=== PATIENT | male | born 1960 | race African-American/Black ===

== ENCOUNTER 2023-02-27 08:55 | Inpatient (IN) | payer SELFPAY ==
[~2023-02-27] VITALS: Ht 190.5 cm; Wt 80.7 kg
[2023-02-27 09:36] LABS: BASOPHILS % 0.8 % (0.0-2.0); HEMATOCRIT. 34.7 % (42.0-52.0); HEMOGLOBIN. 11.7 g/dL (14.0-18.0); LYMPHOCYTES % 21.9 % (20.0-50.0); MEAN CORPUSCULAR HEMOGLOBIN 28.4 pg (28.0-32.0); MEAN CORPUSCULAR HGB CONC 33.6 g/dL (31.0-37.0); MEAN CORPUSCULAR VOLUME 84.6 fL (80.0-94.0); MEAN PLATELET VOLUME 10.4 fl (7.4-10.4); NEUTROPHILS % 67.3 % (40.0-76.0); PLATELET 176 x1000/uL (130-400); RED CELL DISTRIBUTION WIDTH 13.1 % (11.6-14.6); WHITE BLOOD COUNT 4.8 x1000/uL (4.5-11.0)
[2023-02-27 09:44] LABS: CHLORIDE 97 mEq/L (98-107); INDEX HEMOLYSI 1 (1-3); INDEX ICTERIC 1 (1-4); INDEX LIPEMIC 1 (1-3); POTASSIUM 4.7 mEq/L (3.5-5.1); SODIUM 130 mEq/L (136-145)
[2023-02-27 09:53] LABS: ALANINE AMINOTRANSFERASE 18 IU/L (13-61); ALBUMIN 3.9 g/dL (3.4-5.0); ASPARTATE AMINOTRANSFERASE 9 IU/L (15-37); BILIRUBIN TOTAL 0.8 mg/dL (0.1-1.0); CALCIUM 9.1 mg/dL (8.5-10.1); CARBON DIOXIDE 29 mEq/L (21-32); CREATININE 1.6 mg/dL (0.6-1.3); GLUCOSE 370 mg/dL (70-105); PROTEIN TOTAL 8.1 g/dL (6.0-8.3); TROPONIN I HIGH SENSITIVITY 4 ng/L (<78); UREA NITROGEN BLOOD 30 mg/dL (7-21)
[2023-02-27] MEDS ORDERED: ASPIRIN 81MG TABLET PO ONE (10:00)
[2023-02-27] MEDS: NITROGLYCERIN 0.4MG TABLET SL SL PRN ×5 (10:20→10:57)
[2023-02-27] MEDS ORDERED: NITROGLYCERIN 0.4MG TABLET SL SL PRN (13:45)
[2023-02-27] MEDS ORDERED: CLONIDINE 0.1MG TABLET PO PRN (13:45)
[2023-02-27] MEDS ORDERED: ACETAMINOPHEN 325MG TABLET PO PRN ×2 (13:45)
[2023-02-27] MEDS ORDERED: MAGNESIUM/ALUMINUM HYDROXIDE/SIMETHICONE 30ML UDC PO PRN (13:45)
[2023-02-27] MEDS ORDERED: NA PHOS,M-B/NA PHOS,DI-BA ENEMA 118ML PR PRN (13:45)
[2023-02-27] MEDS ORDERED: ONDANSETRON HCL 4MG/2ML INJ IV PRN (13:45)
[2023-02-27] MEDS ORDERED: DOCUSATE SODIUM 100MG CAPSULE PO PRN (13:45)
[2023-02-27] MEDS ORDERED: IPRATROPIUM/ALBUTEROL 0.5-3(2.5)MG/3ML NEB HHN PRN (13:45)
[2023-02-27] MEDS ORDERED: DEXTROSE 50% WATER 50ML SYRINGE IV PRN (14:15)
[2023-02-27] MEDS: SODIUM CHLORIDE 0.9% 1,000 ML IV SCH (14:48)
[2023-02-27 14:52] LABS: CLARITY URINE CLEAR (CLEAR); COLOR URINE YELLOW (YELLOW); GLUCOSE URINE 3+ (NEGATIVE); KETONES URINE TRACE (NEGATIVE); LEUKOCYTE ESTERASE URINE NEGATIVE (NEGATIVE); NITRITE URINE NEGATIVE (NEGATIVE); OCCULT BLOOD URINE NEGATIVE (NEGATIVE); PH URINE 5.5 (4.5-8.0); PROTEIN URINE 1+ (NEGATIVE); SPECIFIC GRAVITY URINE 1.029 (1.005-1.030); UROBILINOGEN URINE 0.2 E.U./dL (0.2-1.0)
[2023-02-27 15:30] LABS: BACTERIA URINE FEW; RBC URINE 0-2 /hpf (0-2); SQUAMOUS EPITHELIAL CELL URINE NONE SEEN /lpf (RARE/1+); WBC URINE 0-2 /hpf (0-2); YEAST URINE NONE SEEN
[2023-02-27 15:50] LABS: *AMPHETAMINES SCREEN URINE NEGATIVE (NEGATIVE); *BARBITURATES SCREEN URINE NEGATIVE (NEGATIVE); *BENZODIAZEPINES SCREEN URINE NEGATIVE (NEGATIVE); *COCAINE SCREEN URINE NEGATIVE (NEGATIVE); CANNABINOID URINE SCREEN NEGATIVE (NEGATIVE); ECSTASY MDMA SCREEN URINE NEGATIVE (NEGATIVE); METHADONE URINE SCREEN NEGATIVE (NEGATIVE); OPIATES URINE SCREEN NEGATIVE (NEGATIVE); PHENCYCLIDINE URINE SCREEN NEGATIVE (NEGATIVE)
[2023-02-27] MEDS: ENOXAPARIN 40MG/0.4ML SYR SUBCUT SCH (16:08)
[2023-02-27] MEDS: METOPROLOL TARTRATE 25MG TABLET PO SCH (16:33)
[2023-02-27] MEDS: INSULIN LISPRO 100 UNITS/ML SUBCUT SCH ×2 (17:55→22:13)
[2023-02-27] MEDS: BLOOD SUGAR DIAGNOSTIC STRIP TEST SCH ×2 (17:59→21:00)
[2023-02-27 18:22] LABS: TROPONIN I HIGH SENSITIVITY 4 ng/L (<78)
[2023-02-27 20:00] VITALS: BP 134/78; PULSE 74; RESP 16; TEMP 96.9
[2023-02-27 20:05] VITALS: BP 134/78; PULSE 72; PULSE 74; RESP 16; RESP 17; TEMP 96.9
[2023-02-27] MEDS ORDERED: INSULIN GLARGINE 100 UNITS/ML SUBCUT SCH (21:00)
[2023-02-27] MEDS: ATORVASTATIN CALCIUM 40MG TABLET PO SCH (21:52)
[2023-02-28] VITALS: BP 111/54; PULSE 73; RESP 18; TEMP 96.9
[2023-02-28] MEDS ORDERED: INSU100I22 SQ (01:04)
[2023-02-28] MEDS ORDERED: ATOR-2 PO (01:04)
[2023-02-28] MEDS ORDERED: METF-416 PO (01:04)
[2023-02-28] MEDS ORDERED: RAMI5CAP65 PO (01:04)
[2023-02-28] MEDS: SODIUM CHLORIDE 0.9% 1,000 ML IV SCH ×3 (02:43→22:43)
[2023-02-28 02:49] LABS: TROPONIN I HIGH SENSITIVITY 6 ng/L (<78)
[2023-02-28 03:09] LABS: HEPATITIS B SURFACE ANTIGEN NEGATIVE
[2023-02-28 04:00] VITALS: BP 137/71; PULSE 67; RESP 20; TEMP 96.9
[2023-02-28 05:22] LABS: HEPATITIS C VIR.AB 0.13 INDEXVAL (0.00-0.80)
[2023-02-28] MEDS: INSULIN LISPRO 100 UNITS/ML SUBCUT SCH ×4 (06:00→21:34)
[2023-02-28] MEDS: BLOOD SUGAR DIAGNOSTIC STRIP TEST SCH ×4 (06:01→21:00)
[2023-02-28 07:16] LABS: BASOPHILS % 0.2 % (0.0-2.0); HEMATOCRIT. 34.3 % (42.0-52.0); HEMOGLOBIN. 11.8 g/dL (14.0-18.0); LYMPHOCYTES % 31.2 % (20.0-50.0); MEAN CORPUSCULAR HEMOGLOBIN 29.2 pg (28.0-32.0); MEAN CORPUSCULAR HGB CONC 34.5 g/dL (31.0-37.0); MEAN CORPUSCULAR VOLUME 84.6 fL (80.0-94.0); MEAN PLATELET VOLUME 11.2 fl (7.4-10.4); NEUTROPHILS % 55.6 % (40.0-76.0); PLATELET 169 x1000/uL (130-400); RED BLOOD CELL COUNT 4.05 mill/uL (4.7-6.1); RED CELL DISTRIBUTION WIDTH 13.4 % (11.6-14.6); WHITE BLOOD COUNT 4.3 x1000/uL (4.5-11.0)
[2023-02-28 07:39] LABS: CHLORIDE 102 mEq/L (98-107); INDEX HEMOLYSI 1 (1-3); INDEX ICTERIC 1 (1-4); INDEX LIPEMIC 1 (1-3); POTASSIUM 4.6 mEq/L (3.5-5.1); SODIUM 136 mEq/L (136-145)
[2023-02-28 07:44] LABS: TROPONIN I HIGH SENSITIVITY 6 ng/L (<78)
[2023-02-28 07:55] LABS: ALANINE AMINOTRANSFERASE 18 IU/L (13-61); ALBUMIN 3.5 g/dL (3.4-5.0); ASPARTATE AMINOTRANSFERASE 11 IU/L (15-37); BILIRUBIN TOTAL 0.4 mg/dL (0.1-1.0); CALCIUM 8.3 mg/dL (8.5-10.1); CARBON DIOXIDE 28 mEq/L (21-32); CHOLESTEROL 146 mg/dL (<200); CREATININE 1.3 mg/dL (0.6-1.3); GLUCOSE 189 mg/dL (70-105); HAPTOGLOBIN 208 mg/dL (30-200); HDL CHOLESTEROL 42 mg/dL (40-59); IRON 54 ug/dL (50-175); LACTATE DEHYDROGENASE 149 IU/L (100-240); LDL CHOLESTEROL 79 mg/dL (5-100); PROTEIN TOTAL 7.5 g/dL (6.0-8.3); THYROID STIMULATING HORMONE 0.96 uIU/mL (0.36-3.74); TOTAL IRON BINDING CAPACITY 230 ug/dL (250-450); TRIGLYCERIDE 214 mg/dL (0-150); UREA NITROGEN BLOOD 28 mg/dL (7-21)
[2023-02-28 08:00] VITALS: BP 128/95; PULSE 56; RESP 20; TEMP 97
[2023-02-28] MEDS ORDERED: METOPROLOL TARTRATE 5MG/5ML VIAL IV PRN (08:00)
[2023-02-28] MEDS ORDERED: METOPROLOL TARTRATE 5MG/5ML VIAL IV NR (08:00)
[2023-02-28] MEDS: METOPROLOL TARTRATE 25MG TABLET PO SCH ×2 (08:53→17:21)
[2023-02-28] MEDS ORDERED: IOHEXOL-350 100 ML BOTTLE ONE ×2 (09:57→10:47)
[2023-02-28] MEDS: ASPIRIN 81MG EC TABLET PO SCH (10:14)
[2023-02-28] MEDS ORDERED: NITROGLYCERIN SPRAY/4.9GM CAN TL NR (11:15)
[2023-02-28 12:00] VITALS: BP 115/54
[2023-02-28 16:00] VITALS: BP 139/68; PULSE 78; RESP 20; TEMP 97.7
[2023-02-28] MEDS: ENOXAPARIN 40MG/0.4ML SYR SUBCUT SCH (17:20)
[2023-02-28 17:59] LABS: TROPONIN I HIGH SENSITIVITY 5 ng/L (<78)
[2023-02-28 20:00] VITALS: BP 117/63; PULSE 67; RESP 18; TEMP 96.9
[2023-02-28] MEDS: ATORVASTATIN CALCIUM 40MG TABLET PO SCH (21:32)
[2023-02-28] MEDS ORDERED: INSULIN GLARGINE 100 UNITS/ML SUBCUT SCH (22:00)
[2023-03-01] VITALS: BP 124/63; PULSE 64; RESP 19; TEMP 97.1
[2023-03-01 04:00] VITALS: BP 122/62; PULSE 63; RESP 18; TEMP 96.9
[2023-03-01] MEDS: INSULIN LISPRO 100 UNITS/ML SUBCUT SCH ×5 (05:54→17:17)
[2023-03-01] MEDS: BLOOD SUGAR DIAGNOSTIC STRIP TEST SCH ×3 (05:55→17:16)
[2023-03-01 07:18] LABS: BASOPHILS % 0.3 % (0.0-2.0); EOSINOPHILS % 2.5 % (0.0-5.0); HEMATOCRIT. 30.9 % (42.0-52.0); HEMOGLOBIN. 10.9 g/dL (14.0-18.0); LYMPHOCYTES % 30.9 % (20.0-50.0); MEAN CORPUSCULAR HEMOGLOBIN 29.5 pg (28.0-32.0); MEAN CORPUSCULAR HGB CONC 35.4 g/dL (31.0-37.0); MEAN CORPUSCULAR VOLUME 83.4 fL (80.0-94.0); MEAN PLATELET VOLUME 11.2 fl (7.4-10.4); MONOCYTES % 9.5 % (2.0-8.0); NEUTROPHILS % 56.8 % (40.0-76.0); PLATELET 161 x1000/uL (130-400); RED CELL DISTRIBUTION WIDTH 13.2 % (11.6-14.6)
[2023-03-01 07:45] LABS: CALCIUM 9.1 mg/dL (8.5-10.1); CHLORIDE 101 mEq/L (98-107); INDEX HEMOLYSI 1 (1-3); INDEX ICTERIC 1 (1-4); INDEX LIPEMIC 1 (1-3); POTASSIUM 4.7 mEq/L (3.5-5.1); SODIUM 132 mEq/L (136-145)
[2023-03-01 07:56] LABS: CARBON DIOXIDE 27 mEq/L (21-32); CREATININE 1.2 mg/dL (0.6-1.3); GLUCOSE 242 mg/dL (70-105); UREA NITROGEN BLOOD 26 mg/dL (7-21)
[2023-03-01 08:00] VITALS: BP 121/63; PULSE 65; RESP 18; TEMP 97
[2023-03-01] MEDS ORDERED: REGADENOSON 0.4 MG/5 ML IV ONE ×2 (08:30→15:45)
[2023-03-01] MEDS: SODIUM CHLORIDE 0.9% 1,000 ML IV SCH (08:43)
[2023-03-01] MEDS: ASPIRIN 81MG EC TABLET PO SCH (09:00)
[2023-03-01 12:00] VITALS: BP 126/79; PULSE 75; RESP 18; TEMP 97.6
[2023-03-01] MEDS: MIDODRINE HCL 5MG TABLET PO SCH ×2 (13:00→17:00)
[2023-03-01 16:00] VITALS: BP 147/92; PULSE 81; RESP 18; TEMP 97
[2023-03-01] MEDS: ENOXAPARIN 40MG/0.4ML SYR SUBCUT SCH (16:00)
[2023-03-01 18:48] VITALS: BP 147/92; PULSE 81; TEMP 97; O2SAT 100
[2023-03-01] MEDS ORDERED: ASPI-1497 PO (19:03)
[2023-03-01] MEDS ORDERED: INSULIN GLARGINE 100 UNITS/ML SUBCUT SCH (22:00)
== END 2023-03-01 19:25 | disposition home or self-care (01) | DRG 203 ==
LOC: ER 09:26 → 8WST 10:55 → SUPCPDRO 15:49 → EDBEDREQ 19:35 → EDBEDREQTM 19:35
PROVIDERS: ADMIT Internal Medicine; ATTEND Internal Medicine
DX: M94.0 Chondrocostal junction syndrome [Tietze] (principal); N17.0 Acute kidney failure with tubular necrosis; E11.40 Type 2 diabetes mellitus with diabetic neuropathy, unspecified; G90.8 Other disorders of autonomic nervous system; D64.9 Anemia, unspecified; E78.5 Hyperlipidemia, unspecified; Z20.822 Contact with and (suspected) exposure to COVID-19; R07.89 Other chest pain; I10 Essential (primary) hypertension; Z63.4 Disappearance and death of family member; Z79.82 Long term (current) use of aspirin; Z79.84 Long term (current) use of oral hypoglycemic drugs; Z80.0 Family history of malignant neoplasm of digestive organs
CPT/HCPCS: 36415; 71045; 75571; 78452; 80048; 80053; 80061; 80305; 81003; 82728; 82962; 83010; 83036; 83540; 83550; 83615; 83880; 83930; 84439; 84443; 84484; 85025; 85044; 85379; 86803; 87340; 87426; 87804; 93005; 93017; 93306; 97162; 97165; 99291; A9500; C9803; J1650; J1815; J2785; J7030; Q9967